=== PATIENT | male | born 1955 | race Caucasian/White ===

== ENCOUNTER 2023-10-18 07:09 | Emergency (ER) | payer MEDICARE | END 2023-10-18 09:25 | disposition home or self-care (01) | LOC: CSHERS 07:09 | DX: R31.0 Gross hematuria (principal); K59.00 Constipation, unspecified; E86.0 Dehydration; I10 Essential (primary) hypertension | CPT/HCPCS: 74176; 80053; 81001; 83690; 85025; 87086; 96360; 96361 ==

== ENCOUNTER 2023-10-22 10:21 | Observation (INO) | payer MEDICARE ==
[2023-10-22] MEDS ORDERED: Morphine 4 MG/ML VIAL ONE ×2 (12:11→15:48)
[2023-10-22] MEDS ORDERED: Ondansetron PF 4 MG/2 ML Vial ONE (12:12)
[2023-10-22] MEDS ORDERED: Ketorolac Tromethamine 30 MG (1 mL) VIAL ONE (12:12)
[2023-10-22 12:26] LABS: ALT (SGPT) 16 U/L (8-55); AST (SGOT) 22 U/L (5-34); Albumin 3.3 g/dL (3.4-4.8); Alkaline Phosphatase 73 U/L (40-110); Anion Gap 11 mmol/L (10-20); BUN (Urea Nitrogen) 11 mg/dL (8.4-25.7); Bilirubin, Total 0.4 mg/dL (0.2-1.2); Calc. Creatinine Clearance 0 mL/min (70-130); Calcium 8.4 mg/dL (7.8-10.44); Carbon Dioxide 28 mmol/L (23-31); Chloride 104 mmol/L (98-107); Estimated GFR 97; Glucose 97 mg/dL (80-115); Protein, Total 6.3 g/dL (5.8-8.1); Sodium 139 mmol/L (136-145)
[2023-10-22 12:28] LABS: Hematocrit 28.1 % (38.8-50.0); Hemoglobin 8.8 g/dL (13.5-17.5); MDiff Complete? YES; Mean Corpuscular HGB CONC 31.3 g/dL (32.0-36.0); Mean Corpuscular Hemoglobin 26.5 pg (27.0-33.0); Mean Corpuscular Volume 84.6 fL (81.2-95.1); Platelet Count 65 10x3/uL (150-450); RBC Distribution Width 17.5 % (11.5-14.5); Red Blood Cell (RBC) Count 3.32 10x6/uL (4.32-5.72); White Blood Cell (WBC) Count 2.3 10x3/uL (3.5-10.5)
[2023-10-22 12:34] LABS: PTT 26.4 sec (22.0-33.0); Prothrombin Time 10.9 sec (9.5-12.1)
[2023-10-22 12:49] LABS: Bilirubin Neg (Negative); Blood, Urine 250 (Negative); Clarity Cloudy (Clear); Glucose, Urine (Dipstick) Normal (Negative); Ketone, Urine 5 mg/dL (Negative); Nitrite Negative (Negative); Protein, Urine (Dipstick) 100 mg/dl (Neg-Trace)
[2023-10-22 12:55] LABS: Leukocyte Unable to Interpret (Negative)
[2023-10-22 12:59] LABS: CAUTI Indications for Culture Dysuria,urgency,freq; RBC/HPF Greater than 50 HPF (0-3)
[2023-10-22 13:00] LABS: Bacteria/HPF 2+ HPF (None Seen); Mucous/LPF Rare LPF (<2+); Squamous Epithelial 0-3 HPF (0-3)
[2023-10-22 13:01] LABS: Urine Culture Reflex No No
[2023-10-22 13:42] LABS: Lymphocytes 71 % (21-51); Monocytes 2 % (0-10); Neutrophil 27 % (42-75)
[2023-10-22 13:47] LABS: Hypochromia SLIGHT = 6-15 cells (100X) (0-5/hpf)
[2023-10-22 13:48] LABS: Anisocytosis SLIGHT = 6-15 cells (100X) (0-5/hpf)
[2023-10-22 13:49] LABS: Platelet Adequacy Comment Appears Decreased
[2023-10-22] MEDS ORDERED: traMADol HCl 50 MG TAB PO PRN (15:24)
[2023-10-22] MEDS ORDERED: Senokot S 8.6-50 MG TAB PO PRN (15:24)
[2023-10-22] MEDS ORDERED: Calcium Carbonate 500 MG ChewTAB PO PRN (15:24)
[2023-10-22] MEDS ORDERED: cefTRIAXone (ROCEPHIN) 1 GM VIAL ONE (15:48)
[2023-10-22] MEDS ORDERED: Glucagon 1 MG/ML KIT IM PRN (16:10)
[2023-10-22] MEDS ORDERED: Dextrose 50% Abboject 50 ML SYRINGE SLOW IVP PRN (16:10)
[2023-10-22] MEDS ORDERED: HumaLOG 300 UNITS/3 ML VIAL SC PRN ×2 (16:10)
[2023-10-22] MEDS ORDERED: Dextrose 5% in Water 1,000 ML IV PRN (16:10)
[2023-10-22] MEDS ORDERED: Dextrose 10% in Water 250 ML IVPB PRN (16:36)
[2023-10-22] MEDS: Acetaminophen 325 MG TAB PO SCH (17:00)
[2023-10-22] MEDS: cefTRIAXone\\ROCEPHIN 1 GM in Sodium Chloride 0.9% 100 ML IVPB SCH (17:17)
[2023-10-22] MEDS ORDERED: Morphine 2 MG/ML VIAL ONE (18:05)
[2023-10-22] MEDS: Morphine 2 MG/ML VIAL SLOW IVP PRN (18:12)
[2023-10-22] MEDS: Gabapentin 300 MG CAP PO SCH (20:50)
[2023-10-22] MEDS: Donepezil HCl 5 MG TAB PO SCH (20:50)
[2023-10-22] MEDS ORDERED: dilTIAZem CD 120 MG CAP PO SCH (21:00)
[2023-10-22] MEDS ORDERED: Amiodarone 200 MG TAB PO SCH (21:00)
[2023-10-22] MEDS ORDERED: Gabapentin 300 MG CAP PO SCH (21:00)
[2023-10-22] MEDS ORDERED: Rosuvastatin 20 MG TAB PO SCH (21:00)
[2023-10-22 21:32] LABS: Hemoglobin 8.2 g/dL (13.5-17.5); Platelet Count 61 10x3/uL (150-450)
[2023-10-22] MEDS ORDERED: traZODone HCl 50 MG TAB ONE (22:23)
[2023-10-22] MEDS ORDERED: Acetaminophen 325 MG TAB ONE (22:23)
[2023-10-22] MEDS: traZODone HCl 50 MG TAB PO PRN (22:30)
[2023-10-23 04:13] LABS: Hematocrit 28.6 % (38.8-50.0); Hemoglobin 8.8 g/dL (13.5-17.5); Mean Corpuscular HGB CONC 30.8 g/dL (32.0-36.0); Mean Corpuscular Hemoglobin 26.5 pg (27.0-33.0); Mean Corpuscular Volume 86.1 fL (81.2-95.1); Platelet Count 62 10x3/uL (150-450); RBC Distribution Width 17.4 % (11.5-14.5); Red Blood Cell (RBC) Count 3.32 10x6/uL (4.32-5.72); White Blood Cell (WBC) Count 1.8 10x3/uL (3.5-10.5)
[2023-10-23 04:26] LABS: ALT (SGPT) 14 U/L (8-55); AST (SGOT) 21 U/L (5-34); Albumin 3.1 g/dL (3.4-4.8); Alkaline Phosphatase 70 U/L (40-110); Anion Gap 14 mmol/L (10-20); BUN (Urea Nitrogen) 12 mg/dL (8.4-25.7); Bilirubin, Total 0.3 mg/dL (0.2-1.2); Calc. Creatinine Clearance 0 mL/min (70-130); Calcium 8.3 mg/dL (7.8-10.44); Carbon Dioxide 25 mmol/L (23-31); Chloride 105 mmol/L (98-107); Estimated GFR 99; Globulin 2.7 g/dL (2.4-3.5); Glucose 109 mg/dL (80-115); Potassium 3.9 mmol/L (3.5-5.1); Protein, Total 5.8 g/dL (5.8-8.1); Sodium 140 mmol/L (136-145)
[2023-10-23 04:37] LABS: MDiff Complete? YES
[2023-10-23] MEDS ORDERED: Acetaminophen 325 MG TAB ONE (04:37)
[2023-10-23 04:43] LABS: Lymphocytes 80 % (21-51); Monocytes 3 % (0-10); Neutrophil 16 % (42-75); Reactive Lymphocytes 1 % (0-10)
[2023-10-23 04:45] LABS: Hypochromia SLIGHT = 6-15 cells (100X) (0-5/hpf)
[2023-10-23 04:46] LABS: Ovalocytes SLIGHT = 2-5 cells (100X) (0-1/hpf)
[2023-10-23 04:47] LABS: Platelet Adequacy Comment Appears Decreased; Polychromasia SLIGHT = 2-3 cells (100X) (0-2/hpf)
[2023-10-23] MEDS ORDERED: traMADol HCl 50 MG TAB ONE (07:42)
[2023-10-23] MEDS ORDERED: Gabapentin 300 MG CAP PO SCH (09:00)
[2023-10-23] MEDS ORDERED: Venlafaxine HCl XR 150 MG CAP PO SCH (09:00)
[2023-10-23] MEDS ORDERED: Lisinopril 2.5 MG TAB PO SCH (09:00)
[2023-10-23] MEDS: Venlafaxine HCl XR 75 MG CAP PO SCH (09:10)
[2023-10-23] MEDS: Amiodarone 200 MG TAB PO SCH (09:10)
[2023-10-23] MEDS: busPIRone HCl 5 MG TAB PO SCH (09:10)
[2023-10-23] MEDS ORDERED: Morphine 2 MG/ML VIAL ONE (09:14)
[2023-10-23] MEDS ORDERED: Amiodarone 200 MG TAB ONE (09:14)
[2023-10-23] MEDS ORDERED: Gabapentin 300 MG CAP ONE (09:16)
== END 2023-10-23 11:11 | disposition home or self-care (01) ==
LOC: CSHERS 10:21 → CSHERHOLD 15:27
PROVIDERS: ADMIT Internal Medicine; ATTEND Internal Medicine
DX: S80.11XA Contusion of right lower leg, initial encounter (principal); R53.1 Weakness; F39 Unspecified mood [affective] disorder; D64.9 Anemia, unspecified; R31.9 Hematuria, unspecified; I48.0 Paroxysmal atrial fibrillation; I63.9 Cerebral infarction, unspecified; E11.40 Type 2 diabetes mellitus with diabetic neuropathy, unspecified; E78.5 Hyperlipidemia, unspecified; I10 Essential (primary) hypertension; D69.6 Thrombocytopenia, unspecified; Z79.82 Long term (current) use of aspirin; Z79.899 Other long term (current) drug therapy
CPT/HCPCS: 73564; 80053 ×2; 81001; 85014; 85018; 85025 ×2; 85049; 85610; 85730; 87086; 93971; 96374; 96375; 96376 ×2; 97110; 97530; 99285; G0378 ×2; J0696; J1885; J2270; J2272 ×2; J2405; 36415

== ENCOUNTER 2023-11-07 20:12 | Emergency (ER) | payer MEDICARE ==
[2023-11-07] MEDS ORDERED: Morphine 4 MG/ML VIAL ONE (21:43)
== END 2023-11-07 22:21 | disposition home or self-care (01) ==
LOC: CSHERS 20:12
DX: S00.83XA Contusion of other part of head, initial encounter (principal); W22.8XXA Striking against or struck by other objects, initial encounter
CPT/HCPCS: 70450; J2270; 96372